=== PATIENT | female | born 1995 | race Caucasian/White ===

== ENCOUNTER 2016-07-02 07:33 | Emergency (ER) | payer OTHER ==
[~2016-07-02] VITALS: Ht 160 cm; Wt 58.5 kg
[~2016-07-02 07:33] MED LIST: BACTRIM,SEPT1 TABLET PO; CHERATUSSIN AC473 ML PO; KEFLEX500 MG PO; MOTRIN800 MG PO; NAPROSYN500 MG PO; NO HOME MEDS; NO MEDS; OXYCODONE HCL5 MG PO; TESSALON PERLE100 MG PO; TRAMADOL HCL50 MG PO; TRAZODONE HCL50 MG PO; ZITHROMAX Z-PA250 MG PO; ZOFRAN4 MG PO
[2016-07-02 08:29] LABS: EOSINOPHIL COUNT 0.1 K/uL (0-0.3); HEMATOCRIT 30.8 % (36.0-46.0); IMMATURE GRANULOCYTE (%) 0.3 % (0.0-0.7); IMMATURE GRANULOCYTE COUNT 0.2 K/uL; LYMPHOCYTE COUNT 1.8 K/uL (1.0-2.8); MCH 29.8 PG (29.0-34.0); MCHC 33.4 G/DL (30.0-36.0); MEAN PLAT.VOLUME 11.7 uM^3 (9.5-12.4); MONOCYTE (%) 6.7 % (3-12); MONOCYTE COUNT 0.5 K/uL (0-0.8); NEUTROPHIL (%) 68.6 % (45-76); NEUTROPHIL COUNT 5.3 K/uL (1.8-6.4); PLATELET COUNT 102 K/uL (156-360); RBC DIS.WIDTH-CV 13.4 % (11.8-14.6); RBC DIS.WIDTH-SD 42.2 % (39-53); RED BLOOD COUNT 3.46 M/uL (3.80-5.20); WHITE BLOOD COUNT 7.8 K/uL (4.1-10.2)
[2016-07-02 08:52] LABS: QUANTITATIVE HCG 2795.7 MIU/ML
[2016-07-02] MEDS ORDERED: FOCALIN XR20 MG PO (09:00)
[2016-07-02 09:31] LABS: CHLORIDE 101 mEq/L (99-109); POTASSIUM 3.4 mEq/L (3.7-5.4); SODIUM 135 mEq/L (136-147)
[2016-07-02 09:33] LABS: GLUCOSE 80 mg/dL (70-99)
[2016-07-02 09:34] LABS: ANION GAP 9 MEQ/L (2-14)
[2016-07-02 09:35] LABS: TOTAL BILIRUBIN 0.4 mg/dL (0.0-1.0)
[2016-07-02 09:36] LABS: ALKALINE PHOSPHATASE 63 IU/L (3-129)
[2016-07-02 09:37] LABS: GFR ESTIMATE (CALCULATED) > 59 mL/min/
[2016-07-02 09:38] LABS: UREA NITROGEN (BUN) 9 mg/dL (9-23)
[2016-07-02 13:54] VITALS: BP 92/45
== END 2016-07-02 13:51 | disposition left against medical advice (07) ==
LOC: EME 07:33
PROVIDERS: Emergency Medicine
DX: O03.4 Incomplete spontaneous abortion without complication (principal); F17.200 Nicotine dependence, unspecified, uncomplicated
CPT/HCPCS: 76801; 80053; 84702; 85025; 86850; 86900; 86901; 99281; 99284

== ENCOUNTER 2016-07-05 21:26 | Emergency (ER) | payer OTHER ==
[~2016-07-05] VITALS: Ht 162.6 cm; Wt 60.5 kg
[~2016-07-05 21:26] MED LIST changes: +FOCALIN XR20 MG PO
[2016-07-05 23:51] LABS: EOSINOPHIL (%) 2.1 % (0-5); EOSINOPHIL COUNT 0.1 K/uL (0-0.3); HEMATOCRIT 25.1 % (36.0-46.0); IMMATURE GRANULOCYTE (%) 0.2 % (0.0-0.7); IMMATURE GRANULOCYTE COUNT 0.1 K/uL; LYMPHOCYTE COUNT 2.7 K/uL (1.0-2.8); MCH 29.9 PG (29.0-34.0); MCHC 33.5 G/DL (30.0-36.0); MCV 89.3 FL (83-99); MEAN PLAT.VOLUME 10.9 uM^3 (9.5-12.4); MONOCYTE (%) 7.3 % (3-12); MONOCYTE COUNT 0.5 K/uL (0-0.8); NEUTROPHIL (%) 48.5 % (45-76); NEUTROPHIL COUNT 3.2 K/uL (1.8-6.4); PLATELET COUNT 127 K/uL (156-360); RBC DIS.WIDTH-CV 13.4 % (11.8-14.6); RBC DIS.WIDTH-SD 42.1 % (39-53); RED BLOOD COUNT 2.81 M/uL (3.80-5.20); WHITE BLOOD COUNT 6.6 K/uL (4.1-10.2)
[2016-07-06 00:01] LABS: CHLORIDE 107 mEq/L (99-109); POTASSIUM 3.4 mEq/L (3.7-5.4); SODIUM 140 mEq/L (136-147)
[2016-07-06 00:03] LABS: GLUCOSE 116 mg/dL (70-99)
[2016-07-06 00:04] LABS: ANION GAP 8 MEQ/L (2-14)
[2016-07-06 00:07] LABS: GFR ESTIMATE (CALCULATED) > 59 mL/min/
[2016-07-06 00:08] LABS: UREA NITROGEN (BUN) 9 mg/dL (9-23)
[2016-07-06 00:27] LABS: PROTHROMBIN TIME 10.6 (9.2-11.2); PTT 30.1 (25-32)
[2016-07-06] MEDS ORDERED: CLEOCIN300 MG PO (01:13)
[2016-07-06] MEDS ORDERED: MOTRIN600 MG PO (01:17)
[2016-07-06 01:31] VITALS: BP 100/54
== END 2016-07-06 01:33 | disposition home or self-care (01) ==
LOC: EME 21:26
PROVIDERS: Physician Assistant
DX: R59.1 Generalized enlarged lymph nodes (principal); D64.9 Anemia, unspecified; R73.9 Hyperglycemia, unspecified; F14.10 Cocaine abuse, uncomplicated; F17.200 Nicotine dependence, unspecified, uncomplicated; Z88.0 Allergy status to penicillin
CPT/HCPCS: 73000; 76536; 80048; 83605; 85025; 85610; 85730; 87040; 99281; 99284

== ENCOUNTER 2016-09-10 16:49 | Emergency (ER) | payer OTHER ==
[~2016-09-10] VITALS: Ht 162.6 cm; Wt 64.6 kg
[~2016-09-10 16:49] MED LIST changes: +CLEOCIN300 MG PO; +MOTRIN600 MG PO
[2016-09-10] MEDS ORDERED: ZITHROMAX Z-PA250 MG PO (18:06)
[2016-09-10] MEDS ORDERED: VENTOLIN HFA18 GM IH (18:06)
[2016-09-10 18:41] VITALS: BP 129/67
== END 2016-09-10 18:41 | disposition home or self-care (01) ==
LOC: EME 16:49
DX: J40 Bronchitis, not specified as acute or chronic (principal); F17.200 Nicotine dependence, unspecified, uncomplicated
CPT/HCPCS: 99281; 99283

== ENCOUNTER 2016-11-27 14:11 | Emergency (ER) | payer OTHER ==
[~2016-11-27] VITALS: Ht 162.6 cm; Wt 60.1 kg
[~2016-11-27 14:11] MED LIST changes: +VENTOLIN HFA18 GM IH
[2016-11-27] MEDS ORDERED: INDOCIN50 MG PO (16:43)
[2016-11-27] MEDS ORDERED: CEFDINIR300 MG PO (16:46)
[2016-11-27 17:00] VITALS: BP 114/61
== END 2016-11-27 17:00 | disposition home or self-care (01) ==
LOC: EME 14:11
DX: H60.92 Unspecified otitis externa, left ear (principal); H66.42 Suppurative otitis media, unspecified, left ear; F17.200 Nicotine dependence, unspecified, uncomplicated
CPT/HCPCS: 99281; 99283

== ENCOUNTER 2016-12-18 03:15 | Emergency (ER) | payer OTHER ==
[~2016-12-18] VITALS: Ht 162.6 cm; Wt 59.1 kg
[~2016-12-18 03:15] MED LIST changes: +CEFDINIR300 MG PO; +INDOCIN50 MG PO
[2016-12-18] MEDS ORDERED: CLONIDINE HCL0.1 MG PO (03:45)
[2016-12-18 04:06] VITALS: BP 144/103
== END 2016-12-18 04:06 | disposition home or self-care (01) ==
LOC: EME 03:15
DX: O99.321 Drug use complicating pregnancy, first trimester (principal); F11.23 Opioid dependence with withdrawal; Z3A.08 8 weeks gestation of pregnancy; O99.341 Other mental disorders complicating pregnancy, first trimester; F31.9 Bipolar disorder, unspecified; F90.9 Attention-deficit hyperactivity disorder, unspecified type; O99.331 Smoking (tobacco) complicating pregnancy, first trimester; F17.200 Nicotine dependence, unspecified, uncomplicated; T40.3X6A Underdosing of methadone, initial encounter; Z91.128 Patient's intentional underdosing of medication regimen for other reason; R52 Pain, unspecified
CPT/HCPCS: 99281; 99283

== ENCOUNTER 2017-02-18 13:00 | Emergency (ER) | payer OTHER ==
[~2017-02-18] VITALS: Ht 160 cm; Wt 59.6 kg
[~2017-02-18 13:00] MED LIST changes: +CLONIDINE HCL0.1 MG PO
[2017-02-18] MEDS ORDERED: IRON325 M1 PO (13:16)
[2017-02-18] MEDS ORDERED: METHADONE1 MG/1 ML PO (13:16)
[2017-02-18] MEDS ORDERED: PRENATAL TABLE1 EAC3 PO (13:17)
[2017-02-18 14:33] VITALS: BP 118/77
== END 2017-02-18 14:34 | disposition home or self-care (01) ==
LOC: EME 13:00
DX: O36.8120 Decreased fetal movements, second trimester, not applicable or unspecified (principal); O99.332 Smoking (tobacco) complicating pregnancy, second trimester; Z3A.17 17 weeks gestation of pregnancy; F17.200 Nicotine dependence, unspecified, uncomplicated
CPT/HCPCS: 99281; 99283

== ENCOUNTER 2017-02-21 05:36 | Emergency (ER) | payer OTHER ==
[~2017-02-21] VITALS: Ht 160 cm; Wt 61.3 kg
[~2017-02-21 05:36] MED LIST changes: +IRON325 M1 PO; +METHADONE1 MG/1 ML PO; +PRENATAL TABLE1 EAC3 PO
[2017-02-21 06:27] LABS: HEMATOCRIT 31.9 % (36.0-46.0); MCH 30.7 PG (29.0-34.0); MCHC 33.9 G/DL (30.0-36.0); MCV 90.6 FL (83-99); MEAN PLAT.VOLUME 12.3 uM^3 (9.5-12.4); PLATELET COUNT 82 K/uL (156-360); RBC DIS.WIDTH-CV 13.6 % (11.8-14.6); RBC DIS.WIDTH-SD 45.2 % (39-53); RED BLOOD COUNT 3.52 M/uL (3.80-5.20); WHITE BLOOD COUNT 6.6 K/uL (4.1-10.2)
[2017-02-21 06:36] LABS: CHLORIDE 107 mEq/L (99-109); POTASSIUM 3.7 mEq/L (3.7-5.4); SODIUM 137 mEq/L (136-147)
[2017-02-21 06:38] LABS: GLUCOSE 77 mg/dL (70-99)
[2017-02-21 06:39] LABS: ADD MIUA? YES; BILIRUBIN NEGATIVE; BLOOD SMALL; COLOR YELLOW ((YELLOW)); GLUCOSE (STRIP) NEGATIVE; KETONES NEGATIVE; LEUKOCYTES NEGATIVE; NITRITE NEGATIVE; PROTEIN (STRIP) NEGATIVE; SPECIFIC GRAVITY 1.013 (1.000-1.030); UROBILINOGEN 0.2 MG/DL (0.2-1.0)
[2017-02-21 06:39] LABS: ANION GAP 9 MEQ/L (2-14)
[2017-02-21 06:40] LABS: TOTAL BILIRUBIN 0.2 mg/dL (0.0-1.0)
[2017-02-21 06:41] LABS: ALKALINE PHOSPHATASE 80 IU/L (3-129)
[2017-02-21 06:42] LABS: GFR ESTIMATE (CALCULATED) > 59 mL/min/
[2017-02-21 06:43] LABS: UREA NITROGEN (BUN) 11 mg/dL (9-23)
[2017-02-21 06:45] LABS: LIPASE 21 U/L (1.0-51.0)
[2017-02-21 07:21] LABS: BACTERIA 1+ /HPF; EPITHELIAL CELLS NONE SEEN /HPF; MUCUS NONE SEEN /LPF; UCUL ADDED? NO; WHITE BLOOD CELLS 0-5 /HPF (0-5)
[2017-02-21 07:22] LABS: AMORPHOUS URATES CRYSTALS 1+; CASTS PRESENT /LPF; CRYSTALS PRESENT; FINE GRANULAR CASTS 0-5 /LPF
[2017-02-21 08:01] VITALS: BP 105/58
== END 2017-02-21 08:03 | disposition left against medical advice (07) ==
LOC: EME 05:36
PROVIDERS: Emergency Medicine
DX: O26.892 Other specified pregnancy related conditions, second trimester (principal); R10.30 Lower abdominal pain, unspecified; O99.332 Smoking (tobacco) complicating pregnancy, second trimester; F17.200 Nicotine dependence, unspecified, uncomplicated; O99.322 Drug use complicating pregnancy, second trimester; F11.20 Opioid dependence, uncomplicated; Z3A.17 17 weeks gestation of pregnancy; Z53.20 Procedure and treatment not carried out because of patient's decision for unspecified reasons
CPT/HCPCS: 76805; 80053; 81003; 83690; 84702; 85027; 99281; 99284

== ENCOUNTER 2017-03-31 04:45 | Emergency (ER) | payer OTHER ==
[~2017-03-31] VITALS: Ht 162.6 cm; Wt 64.4 kg
[2017-03-31 05:40] VITALS: BP 116/67
== END 2017-03-31 05:40 | disposition left against medical advice (07) ==
LOC: EME → EDBD 04:45 → EME 05:40
DX: R05 Cough (principal); Z53.21 Procedure and treatment not carried out due to patient leaving prior to being seen by health care provider

== ENCOUNTER 2017-06-12 19:34 | Emergency (ER) | payer OTHER ==
[~2017-06-12] VITALS: Ht 157.5 cm; Wt 66.6 kg
[2017-06-12 20:22] LABS: HEMATOCRIT 36.6 % (36.0-46.0); MCH 31.3 PG (29.0-34.0); MCHC 33.3 G/DL (30.0-36.0); MCV 93.8 FL (83-99); MEAN PLAT.VOLUME 12.9 uM^3 (9.5-12.4); PLATELET COUNT 113 K/uL (156-360); RBC DIS.WIDTH-CV 12.4 % (11.8-14.6); RBC DIS.WIDTH-SD 42.8 % (39-53); WHITE BLOOD COUNT 8.2 K/uL (4.1-10.2)
[2017-06-12 20:31] LABS: CHLORIDE 105 mEq/L (99-109); POTASSIUM 3.7 mEq/L (3.7-5.4)
[2017-06-12 20:32] LABS: SODIUM 138 mEq/L (136-147)
[2017-06-12 20:34] LABS: GLUCOSE 125 mg/dL (70-99)
[2017-06-12 20:35] LABS: ANION GAP 10 MEQ/L (2-14)
[2017-06-12 20:36] LABS: TOTAL BILIRUBIN 0.4 mg/dL (0.0-1.0)
[2017-06-12 20:37] LABS: ALKALINE PHOSPHATASE 123 IU/L (3-129); GFR ESTIMATE (CALCULATED) > 59 mL/min/
[2017-06-12 20:39] LABS: UREA NITROGEN (BUN) 12 mg/dL (9-23)
[2017-06-12 21:04] LABS: QUANTITATIVE HCG 19619.5 MIU/ML
[2017-06-12] MEDS ORDERED: REGLAN5 MG PO (21:41)
[2017-06-12 22:44] VITALS: BP 129/72
== END 2017-06-12 22:44 | disposition home or self-care (01) ==
LOC: EME 19:34 → EXP 19:34
DX: O21.9 Vomiting of pregnancy, unspecified (principal); Z3A.28 28 weeks gestation of pregnancy; O99.333 Smoking (tobacco) complicating pregnancy, third trimester; F17.200 Nicotine dependence, unspecified, uncomplicated
CPT/HCPCS: 80053; 81003; 84702; 85027; J2765

== ENCOUNTER 2017-07-03 12:48 | Inpatient (IN) | payer OTHER ==
[~2017-07-03] VITALS: Ht 167.6 cm; Wt 86.8 kg
[2017-07-03] VITALS (7 sets, daily range): BP systolic 104–132; BP diastolic 57–87
[~2017-07-03 12:48] MED LIST changes: +REGLAN5 MG PO
[2017-07-03 14:27] LABS: BASOPHIL (%) 0.4 % (0-1); EOSINOPHIL (%) 1.3 % (0-5); EOSINOPHIL COUNT 0.1 K/uL (0-0.3); HEMOGLOBIN 11.1 G/DL (11.9-15.5); IMMATURE GRANULOCYTE (%) 0.6 % (0.0-0.7); LYMPHOCYTE (%) 25.3 % (15-42); LYMPHOCYTE COUNT 2.5 K/uL (1.0-2.8); MCH 32.6 PG (29.0-34.0); MCHC 34.7 G/DL (30.0-36.0); MCV 94.1 FL (83-99); MONOCYTE COUNT 0.7 K/uL (0-0.8); NEUTROPHIL (%) 65.4 % (45-76); NEUTROPHIL COUNT 6.4 K/uL (1.8-6.4); PLATELET COUNT 83 K/uL (156-360); RBC DIS.WIDTH-CV 13.2 % (11.8-14.6); RBC DIS.WIDTH-SD 45.1 % (39-53); WHITE BLOOD COUNT 9.9 K/uL (4.1-10.2)
[2017-07-03 14:49] LABS: AMPHETAMINE NEGATIVE (500 ng/mL); BARBITURATES NEGATIVE (200 ng/mL); BENZODIAZEPINES NEGATIVE (150 ng/mL); BUPRENORPHINE NEGATIVE (10 ng/mL); COCAINE NEGATIVE (150 ng/mL); METHADONE PRESUMPTIVE POSITIVE (200 ng/mL); METHAMPHETAMINE NEGATIVE (500 ng/mL); OPIATES (MORPHINE) NEGATIVE (100 ng/mL); OXYCODONE NEGATIVE (100 ng/mL); PHENCYCLIDINE NEGATIVE (25 ng/mL); PROPOXYPHENE NEGATIVE (300 ng/mL); THC CANNABINOIDS NEGATIVE (50 ng/mL); TRICYCLIC ANTIDEPRESSANTS NEGATIVE (300 ng/mL)
[2017-07-03] MEDS ORDERED: ZOFRAN4 MG PO (17:35)
[2017-07-03 18:10] LABS: ALKALINE PHOSPHATASE 123 IU/L (3-129); ALT (GPT) 38 IU/L (3-49); AST (GOT) 17 IU/L (2-34); CHLORIDE 102 MEQ/L (99-109); CREATININE 0.5 MG/DL (0.6-1.3); GFR ESTIMATE (CALCULATED) > 59 mL/min/; GLUCOSE 73 mg/dL (70-99); SODIUM 133 MEQ/L (136-147); TOTAL BILIRUBIN 0.3 MG/DL (0.0-1.0); TOTAL PROTEIN 5.8 G/DL (6.4-8.3); UREA NITROGEN (BUN) 9 mg/dL (9-23)
[2017-07-03] MEDS ORDERED: IBUPROFEN800 MG PO (20:42)
[2017-07-03] MEDS ORDERED: ENDOCET 5-3251 EACH PO (20:42)
[2017-07-04 01:28] VITALS: BP 115/56
[2017-07-04 03:13] VITALS: BP 107/57
[2017-07-04 05:30] VITALS: BP 97/57
[2017-07-04 07:08] VITALS: BP 109/53
[2017-07-04 07:43] LABS: BASOPHIL (%) 0.2 % (0-1); EOSINOPHIL (%) 0.1 % (0-5); HEMATOCRIT 27.4 % (36.0-46.0); HEMOGLOBIN 9.3 G/DL (11.9-15.5); IMMATURE GRANULOCYTE (%) 0.5 % (0.0-0.7); LYMPHOCYTE (%) 11.4 % (15-42); LYMPHOCYTE COUNT 1.7 K/uL (1.0-2.8); MCH 31.8 PG (29.0-34.0); MCHC 33.9 G/DL (30.0-36.0); MCV 93.8 FL (83-99); MONOCYTE COUNT 0.9 K/uL (0-0.8); NEUTROPHIL (%) 81.8 % (45-76); NEUTROPHIL COUNT 12.5 K/uL (1.8-6.4); PLATELET COUNT 89 K/uL (156-360); RBC DIS.WIDTH-CV 12.9 % (11.8-14.6); RBC DIS.WIDTH-SD 44.2 % (39-53); RED BLOOD COUNT 2.92 M/uL (3.80-5.20); WHITE BLOOD COUNT 15.3 K/uL (4.1-10.2)
[2017-07-04 10:55] VITALS: BP 120/56
[2017-07-04 14:49] VITALS: BP 116/61
[2017-07-05 07:51] VITALS: BP 109/59
[2017-07-05 11:04] VITALS: BP 112/65
[2017-07-05 14:39] VITALS: BP 118/63
[2017-07-06 07:34] VITALS: BP 109/56
[2017-07-06 14:25] VITALS: BP 102/55
[2017-07-06 22:21] VITALS: BP 118/68
== END 2017-07-07 10:45 | disposition home or self-care (01) | DRG 765 ==
LOC: LDRP-OP → 2WEST 12:49 → LDRP-OP 07-04 09:08 → 2WEST 07-07 10:45 → LDRP-OP 08-24 07:26
PROVIDERS: Midwife; Obstetrics & Gynecology Gynecology
PROC: 10D00Z1 Extraction of Products of Conception, Low, Open Approach (ICD-10-PCS; principal; 2017-07-03)
PROC: 3E0P7GC Introduction of Other Therapeutic Substance into Female Reproductive, Via Natural or Artificial Opening (ICD-10-PCS; 2017-07-03)
DX: O76 Abnormality in fetal heart rate and rhythm complicating labor and delivery (principal); O60.14X1 Preterm labor third trimester with preterm delivery third trimester, fetus 1; F11.20 Opioid dependence, uncomplicated; O99.324 Drug use complicating childbirth; F17.210 Nicotine dependence, cigarettes, uncomplicated; O99.334 Smoking (tobacco) complicating childbirth; Z37.0 Single live birth; Z3A.36 36 weeks gestation of pregnancy; O36.5931 Maternal care for other known or suspected poor fetal growth, third trimester, fetus 1; F31.9 Bipolar disorder, unspecified; F90.9 Attention-deficit hyperactivity disorder, unspecified type; O99.344 Other mental disorders complicating childbirth; G89.29 Other chronic pain; M54.9 Dorsalgia, unspecified; O61.0 Failed medical induction of labor; J45.909 Unspecified asthma, uncomplicated; O99.52 Diseases of the respiratory system complicating childbirth
CPT/HCPCS: 80053; 85025; 88307; J1100; J1580; J1885; J2270; J2274; J2405; J3010; J7050; J7120

== ENCOUNTER 2017-08-11 01:28 | Emergency (ER) | payer OTHER ==
[~2017-08-11] VITALS: Ht 157.5 cm; Wt 66.4 kg
[~2017-08-11 01:28] MED LIST changes: +ENDOCET 5-3251 EACH PO; +IBUPROFEN800 MG PO
[2017-08-11 01:31] VITALS: BP 113/68
[2017-08-11] MEDS ORDERED: CLINDAMYCIN HC300 MG PO (19:24)
[2017-08-11] MEDS ORDERED: LIDOCAINE20 MG/1 M5 PO (19:24)
== END 2017-08-11 02:00 | disposition left against medical advice (07) ==
LOC: EME 01:28
DX: S01.511A Laceration without foreign body of lip, initial encounter (principal); W45.8XXA Other foreign body or object entering through skin, initial encounter; Z53.21 Procedure and treatment not carried out due to patient leaving prior to being seen by health care provider

== ENCOUNTER 2017-08-11 15:08 | Emergency (ER) | payer OTHER ==
[~2017-08-11] VITALS: Ht 157.5 cm; Wt 67.1 kg
[2017-08-11] MEDS ORDERED: LIDOCAINE20 MG/1 M5 PO (19:24)
[2017-08-11] MEDS ORDERED: CLINDAMYCIN HC300 MG PO (19:24)
[2017-08-11 19:36] VITALS: BP 111/75
== END 2017-08-11 19:37 | disposition left against medical advice (07) ==
LOC: EME 15:08
DX: S01.511A Laceration without foreign body of lip, initial encounter (principal); W19.XXXA Unspecified fall, initial encounter; F17.200 Nicotine dependence, unspecified, uncomplicated; Z53.20 Procedure and treatment not carried out because of patient's decision for unspecified reasons
CPT/HCPCS: 99281; 99284

== ENCOUNTER 2017-09-13 17:15 | Emergency (ER) | payer OTHER ==
[~2017-09-13] VITALS: Ht 157.5 cm; Wt 65.1 kg
[~2017-09-13 17:15] MED LIST changes: +CLINDAMYCIN HC300 MG PO; +LIDOCAINE20 MG/1 M5 PO
[2017-09-13 19:53] LABS: HEMATOCRIT 36.9 % (36.0-46.0); HEMOGLOBIN 12.2 G/DL (11.9-15.5); MCH 30.5 PG (29.0-34.0); MCHC 33.1 G/DL (30.0-36.0); MCV 92.3 FL (83-99); PLATELET COUNT 203 K/uL (156-360); RBC DIS.WIDTH-CV 11.7 % (11.8-14.6); RBC DIS.WIDTH-SD 39.9 % (39-53); WHITE BLOOD COUNT 7.4 K/uL (4.1-10.2)
[2017-09-13 20:04] LABS: CHLORIDE 102 mEq/L (99-109); POTASSIUM 4.1 mEq/L (3.7-5.4); SODIUM 140 mEq/L (136-147)
[2017-09-13 20:05] LABS: GLUCOSE 67 mg/dL (70-99)
[2017-09-13 20:09] LABS: CREATININE 0.8 mg/dL (0.6-1.3); GFR ESTIMATE (CALCULATED) > 59 mL/min/
[2017-09-13 20:10] LABS: UREA NITROGEN (BUN) 12 mg/dL (9-23)
[2017-09-13] MEDS ORDERED: KEFLEX500 MG PO (20:23)
[2017-09-13] MEDS ORDERED: BACTRIM,SEPT1 TABLET PO (20:23)
[2017-09-13] MEDS ORDERED: MOTRIN800 MG PO (20:23)
[2017-09-13 20:42] VITALS: BP 116/70
== END 2017-09-13 20:43 | disposition home or self-care (01) ==
LOC: EME 17:15
PROVIDERS: Physician Assistant
DX: L03.113 Cellulitis of right upper limb (principal); Z88.0 Allergy status to penicillin
CPT/HCPCS: 73130; 80048; 83605; 85027; 87040; 99281; 99284; J0696

== ENCOUNTER 2017-09-25 16:05 | Emergency (ER) | payer OTHER ==
[~2017-09-25] VITALS: Ht 157.5 cm; Wt 68.6 kg
[2017-09-25] MEDS ORDERED: NAPROXEN500 MG PO (19:02)
[2017-09-25 19:13] VITALS: BP 113/50
== END 2017-09-25 19:15 | disposition home or self-care (01) ==
LOC: EME 16:05
DX: M79.89 Other specified soft tissue disorders (principal); F31.9 Bipolar disorder, unspecified; F90.9 Attention-deficit hyperactivity disorder, unspecified type; F17.200 Nicotine dependence, unspecified, uncomplicated; Z88.0 Allergy status to penicillin; Z79.891 Long term (current) use of opiate analgesic
CPT/HCPCS: 99281; 99283

== ENCOUNTER 2017-11-04 21:22 | Emergency (ER) | payer OTHER ==
[~2017-11-04] VITALS: Ht 160 cm; Wt 68.4 kg
[~2017-11-04 21:22] MED LIST changes: +NAPROXEN500 MG PO
[2017-11-04] MEDS ORDERED: NAPROSYN500 MG PO (23:23)
[2017-11-04 23:45] VITALS: BP 121/88
== END 2017-11-04 23:48 | disposition home or self-care (01) ==
LOC: EME 21:22
DX: S83.92XA Sprain of unspecified site of left knee, initial encounter (principal); W01.0XXA Fall on same level from slipping, tripping and stumbling without subsequent striking against object, initial encounter; Y93.02 Activity, running; F17.200 Nicotine dependence, unspecified, uncomplicated
CPT/HCPCS: 73564; 99281; 99284